=== PATIENT | female | born 1950 | race Caucasian/White ===

== ENCOUNTER 2016-08-21 14:25 | Observation (INO) | payer MEDICAID ==
[~2016-08-21] VITALS: Ht 165.1 cm; Wt 45.0 kg
[~2016-08-21 14:25] MED LIST: CELE20TA PO; HYDR-3580 PO; MELO15TA2 PO; TRAZ100 PO; ZOFR4TAB3 SL
[2016-08-21 14:27] VITALS: BP 111/61; PULSE 106; RESP 20; TEMP 99.1; O2SAT 97
[2016-08-21] MEDS ORDERED: CELE20TA PO (15:21)
[2016-08-21] MEDS ORDERED: TRAZ50TA12 PO (15:21)
[2016-08-21] MEDS ORDERED: HYDR-3535 PO (15:21)
[2016-08-21] MEDS ORDERED: GABA300C5 PO (15:21)
[2016-08-21] MEDS ORDERED: LORA-474 PO (15:21)
[2016-08-21] MEDS ORDERED: SODIUM CHLORIDE 0.9% FLUSH 10 ML FLUSH IVF PRN (16:00)
[2016-08-21] MEDS ORDERED: ASPIRIN 325 MG TAB PO ONE (16:00)
[2016-08-21] MEDS ORDERED: oxyCODONE/ACETAMINOPHEN 5 MG/325 MG TAB PO ONE (16:00)
[2016-08-21] MEDS ORDERED: LORazepam 1 MG TAB PO ONE (16:00)
--- NOTE | 2016-08-21 16:01 | PD ---
HPI Chief Complaint: Pain: Acute or Chronic Time Seen by Provider: 15:40 Travel History International Travel<30 days: No Contact w/Intl Traveler<30days: No Traveled to known affect area: No History of Present Illness HPI The patient was seen and examined in the presence of the nurse. She complains of chest pain. Duration 5 days. She describes it as a upper and central sternal heaviness. It radiates toward her left shoulder. Severity is moderate. No alleviating factors. Patient was hospitalized at [facility] for the weekend for this problem but she signed out AGAINST MEDICAL ADVICE. She did not get any stress testing. She comes in today for evaluation of the same chest pain. PFSH Past Medical History ADHD: Yes Arthritis: Yes Anxiety: Yes Depression: Yes Cardiovascular Problems: Yes Chest Pain: Yes Diminished Hearing: No GERD: Yes Headaches: Yes Musculoskeletal: Yes (HX OF DJD, SCOLIOSIS, sciatica, chronic back pain ) Psychiatric: Yes Respiratory: Yes Immunizations Current: No Migraines: Yes Seizures: Yes Menopausal: Yes : 1 Para: 0 Miscarriage: 1 : 0 Past Surgical History Joint Replacement: Yes (left shoulder surgery) Oral Surgery: Yes (TEETH REMOVED 2006) Family History Family Hypercholesterolemia: Yes Social History Alcohol Use: No Tobacco Use: Yes (1 cig per day) Substance Use: No Allergies-Medications (Allergen,Severity, Reaction): Coded Allergies: Penicillin (Verified Allergy, Severe, SKIN TURNS RED, 08/21/16) Toradol (Verified Allergy, Severe, Rash, 08/21/16) THE PATIENT CAN TAKE OTHER NSAIDS (ADVIL) WITHOUT REACTIONS Phenergan (Verified Allergy, Mild, VOMITING, 08/21/16) Reported Meds & Prescriptions Reported Meds & Active Scripts Active Reported Ativan (Lorazepam) 1 Mg Tab 1 Mg PO TID PRN Trazodone (Trazodone HCl) 50 Mg Tab 75 Mg PO HS Gabapentin 300 Mg Cap 300 Mg PO BID Lortab (Hydrocodone-Acetaminophen) 10-325 Mg Tab 1 Tab PO Q6H PRN Celexa (Citalopram Hydrobromide) 20 Mg Tab 20 Mg PO DAILY Review of Systems General / Constitutional: No: Fever Eyes: No: Visual changes HENT: No: Headaches Cardiovascular: Positive: Chest Pain or Discomfort Respiratory: No: Shortness of Breath Gastrointestinal: No: Abdominal Pain Genitourinary: No: Dysuria Musculoskeletal: Positive: Pain Skin: No Rash Neurologic: No: Weakness Psychiatric: Positive: Anxiety, No: Depression Endocrine: No: Polydipsia Hematologic/Lymphatic: No: Easy Bruising Physical Exam Narrative GENERAL: Thin cachectic patient in no apparent distress. SKIN: Warm and dry. HEAD: Atraumatic. Normocephalic. EYES: Pupils equal and round. No scleral icterus. No injection or drainage. ENT: No nasal bleeding or discharge. Mucous membranes pink and moist. NECK: Trachea midline. No JVD. CARDIOVASCULAR: Regular rate and rhythm. No murmur appreciated. RESPIRATORY: No accessory muscle use. Clear to auscultation. Breath sounds equal bilaterally. GASTROINTESTINAL: Abdomen soft, non-tender, nondistended. Hepatic and splenic margins not palpable. MUSCULOSKELETAL: No obvious deformities. No clubbing. No cyanosis. No edema. NEUROLOGICAL: Awake and alert. No obvious cranial nerve deficits. Motor grossly within normal limits. Normal speech. PSYCHIATRIC: Anxious mood and affect; insight and judgment questionable. Data Data Last Documented VS Vital Signs Date Time Temp Pulse Resp B/P Pulse Ox O2 Delivery O2 Flow Rate FiO2 08/21/16 18:02 72 20 99/58 99 Room Air 08/21/16 14:27 99.1 Orders Electrocardiogram (08/21/16 ) Basic Metabolic Panel (Bmp) (08/21/16 15:48) Ckmb (Isoenzyme) Profile (08/21/16 15:48) Complete Blood Count With Diff (08/21/16 15:48) Prothrombin Time / Inr (Pt) (08/21/16 15:48) Act Partial Throm Time (Ptt) (08/21/16 15:48) Troponin I (08/21/16 15:48) Chest, Single Ap (08/21/16 15:48) Ecg Monitoring (08/21/16 15:48) Iv Access Insert/Monitor (08/21/16 15:48) Oximetry (08/21/16 15:48) Aspirin (Aspirin) (08/21/16 16:00) Sodium Chloride 0.9% Flush (Ns Flush) (08/21/16 16:00) Oxycodone-Acetamin 5-325 Mg (Percocet (08/21/16 16:00) Lorazepam (Ativan) (08/21/16 16:00) Admit Order (Ed Use Only) (08/21/16 18:45) Labs Laboratory Tests Test 08/21/16 16:00 White Blood Count 6.2 TH/MM3 Red Blood Count 4.25 MIL/MM3 Hemoglobin 13.4 GM/DL Hematocrit 38.5 % Mean Corpuscular Volume 90.6 FL Mean Corpuscular Hemoglobin 31.6 PG Mean Corpuscular Hemoglobin 34.8 % Concent Red Cell Distribution Width 12.5 % Platelet Count 171 TH/MM3 Mean Platelet Volume 9.1 FL Neutrophils (%) (Auto) 75.6 % Lymphocytes (%) (Auto) 18.4 % Monocytes (%) (Auto) 4.5 % Eosinophils (%) (Auto) 0.7 % Basophils (%) (Auto) 0.8 % Neutrophils # (Auto) 4.7 TH/MM3 Lymphocytes # (Auto) 1.1 TH/MM3 Monocytes # (Auto) 0.3 TH/MM3 Eosinophils # (Auto) 0.0 TH/MM3 Basophils # (Auto) 0.0 TH/MM3 CBC Comment DIFF FINAL Differential Comment Prothrombin Time 11.4 SEC Prothromb Time International 1.0 RATIO Ratio Activated Partial 22.7 SEC Thromboplast Time Sodium Level 141 MEQ/L Potassium Level 3.8 MEQ/L Chloride Level 107 MEQ/L Carbon Dioxide Level 27.6 MEQ/L Anion Gap 6 MEQ/L Blood Urea Nitrogen 10 MG/DL Creatinine 0.70 MG/DL Estimat Glomerular Filtration 84 ML/MIN Rate Random Glucose 87 MG/DL Calcium Level 8.7 MG/DL Total Creatine Kinase 36 U/L Troponin I LESS THAN 0.02 NG/ML MDM Medical Decision Making Medical Screen Exam Complete: Yes Emergency Medical Condition: Yes Medical Record Reviewed: Yes Differential Diagnosis Differential diagnosis includes SC, angina, pericarditis, pleurisy, GERD, anxiety. Narrative Course I have reviewed the patient's electronic medical record. She was seen here in 2013 for chest pain and hospitalized and had a normal stress test IV placed I reviewed the EKG which shows sinus rhythm but no ST elevation I reviewed the chest x-ray is negative Extended cardiac monitoring shows sinus rhythm without ectopy CBC is normal Metabolic profile is normal CK is normal Troponin is normal are normal Coagulation studies I gave her an aspirin and 1 pain pill and 1 anxiety pill Workup here is entirely negative. He will be a 23 hour observation in the chest pain center in order to rule out cardiac cause of her chest heaviness Diagnosis Primary Impression: Chest pain in adult Admitting Information Admitting Physician Requests: Observation Zheng Garzon MD Aug 21, 2016 16:01
[2016-08-21 16:30] LABS: AUTOMATED NEUTROPHIL # 4.7 TH/MM3 (1.8-7.7); BASOPHIL % 0.8 % (0.0-2.0); EOSINOPHIL % 0.7 % (0.0-4.0); HEMATOCRIT 38.5 % (35.0-46.0); HEMO FLAGS DIFF FINAL; LYMPH % 18.4 % (9.0-44.0); LYMPHOCYTE # 1.1 TH/MM3 (1.0-4.8); MEAN CELL VOLUME 90.6 FL (80.0-100.0); MEAN CORPUSCULAR HEMOGLOBIN 31.6 PG (27.0-34.0); MEAN CORPUSCULAR HGB CONC 34.8 % (32.0-36.0); MONO % 4.5 % (0.0-8.0); NEUT % 75.6 % (16.0-70.0); PLATELET COUNT 171 TH/MM3 (150-450); RED BLOOD COUNT 4.25 MIL/MM3 (4.00-5.30); RED CELL DISTRIBUTION WIDTH 12.5 % (11.6-17.2); WHITE BLOOD COUNT 6.2 TH/MM3 (4.0-11.0)
[2016-08-21 16:34] LABS: APTT (PATIENT) 22.7 SEC (24.3-30.1); PROTHROMBIN TIME - PATIENT 11.4 SEC (9.8-11.6)
[2016-08-21 16:45] LABS: ANION GAP 6 MEQ/L (5-15); BICARBONATE 27.6 MEQ/L (21.0-32.0); BLOOD UREA NITROGEN 10 MG/DL (7-18); CHLORIDE 107 MEQ/L (98-107); GLOMERULAR FILTRATION RATE 84 ML/MIN (>89); POTASSIUM 3.8 MEQ/L (3.5-5.1); SODIUM (NA) 141 MEQ/L (136-145)
[2016-08-21 16:46] LABS: CREATINE KINASE 36 U/L (26-192)
[2016-08-21 16:54] VITALS: O2SAT 97
--- NOTE | 2016-08-21 16:55 | RADRPT ---
EXAM DATE/TIME: 08/21/2016 16:13 [facility] COMPARISON: CHEST SINGLE AP, August 25, 2012, 12:46. INDICATIONS : Chest pain. MEDICAL HISTORY : pt states that she has a blockage but wouldn't have a catherization. SURGICAL HISTORY : None. ENCOUNTER: Initial ACUITY: 1 day PAIN SCORE: 10/10 LOCATION: Left chest left arm and shoulder FINDINGS: A single view of the chest demonstrates the lungs to be hyperinflated but clear of acute infiltrate. Minimal atelectasis or scarring above the left hemidiaphragm. No effusions. Heart size is normal. Med ullary scott and osseous screws secure the proximal left humerus. Osseous structures are otherwise inta ct. CONCLUSION: 1. Hyperinflation with minimal atelectasis or scarring above the left hemidiaphragm. 2. No acute infiltrate. Cristobal Arriaga MD on August 21, 2016 at 16:52 Board Certified Radiologist. This report was verified electronically.
[2016-08-21 18:02] VITALS: BP 99/58; PULSE 72; RESP 20; O2SAT 99
[2016-08-21] MEDS ORDERED: ALPRAZolam 0.25 MG TAB PO PRN (19:00)
[2016-08-21] MEDS ORDERED: ONDANSETRON HCL 4 MG/2 ML VIAL IV PRN (19:00)
[2016-08-21] MEDS ORDERED: SODIUM CHLORIDE 0.9% FLUSH 10 ML FLUSH IV FLUSH PRN (19:00)
[2016-08-21] MEDS ORDERED: ACETAMINOPHEN/HYDROcodone 325 MG/7.5 MG TAB PO PRN (19:00)
[2016-08-21 20:10] LABS: CREATINE KINASE 32 U/L (26-192)
[2016-08-21] MEDS: SODIUM CHLORIDE 0.9% FLUSH 10 ML FLUSH IV FLUSH SCH (21:00)
[2016-08-21] MEDS ORDERED: LORazepam 1 MG TAB PO PRN (23:00)
[2016-08-21 23:02] LABS: CREATINE KINASE 22 U/L (26-192)
[2016-08-22] MEDS: ACETAMINOPHEN/HYDROcodone 325 MG/10 MG TAB PO PRN ×2 (00:58→08:16)
[2016-08-22 02:17] VITALS: BP 124/78; PULSE 86; RESP 18; TEMP 97.8; O2SAT 97
[2016-08-22 08:06] VITALS: BP 114/70; PULSE 64; RESP 16; TEMP 97.9; O2SAT 98
--- NOTE | 2016-08-22 08:08 | HHI.HP ---
HPI Primary Care Physician Wilfrid Hdez DO Chief Complaint Chest pain History of Present Illness This is a 66-year-old female with history of chronic back pain and anxiety that presents to ED complaining of 6 days of constant discomfort in her left chest, left shoulder, left side her neck with the discomfort radiating down her left arm. Certain movements seem to exacerbate her symptoms. He states she has been doing some packing at home as she is about to move. But denies any particular trauma. She times been short of breath nauseous and diaphoretic with her symptoms. She went to a different facility on the first of her symptoms was kept overnight and she states that she was scared when they told her they wanted to do a heart catheterization and then she left AMA. Denies recent illnesses. Denies fevers or chills. Last stress test at this facility was in 2012 and was nonischemic. Review of Systems General: Patient denies fevers, chills recent, and recent travel HEENT: Patient denies headache, sore throat, difficulty swallowing. Cardiovascular: Has the chest discomfort as mentioned above. Denies sensation of heart beating rapidly or irregularly. No syncope. At times some diaphoresis. Respiratory: She times been short of breath but thinks it may been related to anxiety. Denies inspirational chest discomfort. Denies coughing wheezing or hemoptysis. GI: At times nausea. Patient denies vomiting, diarrhea, abdominal pain, bloody stools. Musculoskeletal: Complains of chronic back pain. Patient denies joint pain or edema. Denies calf pain or edema. Neurovascular: Patient denies numbness, tingling, weakness in extremities. Denies headache. Endocrine: Denies polyuria and polydipsia. Hematologic: Denies easy bruising. Skin: Denies rash or itching. Past Family Social History Allergies: Coded Allergies: Penicillin (Verified Allergy, Severe, SKIN TURNS RED, 08/21/16) Toradol (Verified Allergy, Severe, Rash, 08/21/16) THE PATIENT CAN TAKE OTHER NSAIDS (ADVIL) WITHOUT REACTIONS Phenergan (Verified Allergy, Mild, VOMITING, 08/21/16) Past Medical History Chronic back pain, anxiety, and tobacco abuse. Denies known CAD, hypertension, diabetes, and hyperlipidemia. Past Surgical History Rods and her left arm. She has pins in her right elbow. Reported Medications Reported Meds & Active Scripts Active Reported Ativan (Lorazepam) 1 Mg Tab 1 Mg PO TID PRN Trazodone (Trazodone HCl) 50 Mg Tab 75 Mg PO HS Gabapentin 300 Mg Cap 300 Mg PO BID Lortab (Hydrocodone-Acetaminophen) 10-325 Mg Tab 1 Tab PO Q6H PRN Celexa (Citalopram Hydrobromide) 20 Mg Tab 20 Mg PO DAILY Active Ordered Medications Current Medications Medications (Trade) Dose Ordered Sig/Geovanna Route Start Time Stop Time Status Last Admin (NS Flush) 2 ml UNSCH PRN IV FLUSH 08/21/16 19:00 (NS Flush) 2 ml BID IV FLUSH 08/21/16 21:00 08/21/16 21:00 (Poca 7.5-325 Mg) 1 tab Q4H PRN PO 08/21/16 19:00 08/21/16 19:43 (Zofran Inj) 4 mg Q6H PRN IV 08/21/16 19:00 08/21/16 19:43 (Aspirin) 325 mg DAILY PO 08/22/16 09:00 (Xanax) 0.25 mg Q8H PRN PO 08/21/16 19:00 08/21/16 19:43 (CeleXA) 20 mg DAILY PO 08/22/16 09:00 (Neurontin) 300 mg BID PO 08/22/16 09:00 (Poca 10-325 Mg) 1 tab Q6H PRN PO 08/21/16 23:00 08/22/16 00:58 (Ativan) 1 mg TID PRN PO 08/21/16 23:00 (Desyrel) 50 mg HS PO 08/22/16 21:00 Family History Denies family history of CAD. Social History Patient has smoked 2-3 cigarettes a day for the last 15 years. She denies alcohol or illicit drugs. She lives with a roommate. Physical Exam Vital Signs Vital Signs Date Time Temp Pulse Resp B/P Pulse Ox O2 Delivery O2 Flow Rate FiO2 08/22/16 02:25 18 08/22/16 02:17 97.8 86 18 124/78 97 08/22/16 01:00 18 08/21/16 18:02 72 20 99/58 99 Room Air 08/21/16 16:54 97 08/21/16 14:27 99.1 106 20 111/61 97 Room Air Physical Exam GENERAL: This is a well-nourished, well-developed patient, in no apparent distress. Patient speaks in clear complete sentences. Patient is pleasant. HEENT: Head is atraumatic and normocephalic. Neck is supple without lymphadenopathy and trachea is midline. No JVD or carotid bruits. CARDIOVASCULAR: Regular rate and rhythm without murmurs, gallops, or rubs. RESPIRATORY: Clear to auscultation. Breath sounds equal bilaterally. No wheezes , rales, or rhonchi. The discomfort is worsened with twisting of the torso. No use of accessory muscles. GASTROINTESTINAL: Abdomen is nontender, nondistended. Abdomen soft. No obvious pulsatile mass or bruit. No CVA tenderness. Strong femoral pulses bilaterally. Normal bowel sounds in all quadrants. MUSCULOSKELETAL: Chronic back pain is present on examination with range of motion of her back. Patient is moving upper and lower extremities freely. No calf tenderness or edema, no Homans sign. Strong pulses in upper and lower extremities. Strong radiocommunications technician strength bilaterally. NEUROLOGICAL: Patient is alert and oriented. Cranial nerves 2-12 are grossly intact. No focal deficits and speech is clear. SKIN: No rash and turgor is normal. Laboratory Laboratory Tests Test 08/21/16 08/21/16 08/21/16 16:00 19:25 22:15 White Blood Count 6.2 Red Blood Count 4.25 Hemoglobin 13.4 Hematocrit 38.5 Mean Corpuscular Volume 90.6 Mean Corpuscular Hemoglobin 31.6 Mean Corpuscular Hemoglobin 34.8 Concent Red Cell Distribution Width 12.5 Platelet Count 171 Mean Platelet Volume 9.1 Neutrophils (%) (Auto) 75.6 Lymphocytes (%) (Auto) 18.4 Monocytes (%) (Auto) 4.5 Eosinophils (%) (Auto) 0.7 Basophils (%) (Auto) 0.8 Neutrophils # (Auto) 4.7 Lymphocytes # (Auto) 1.1 Monocytes # (Auto) 0.3 Eosinophils # (Auto) 0.0 Basophils # (Auto) 0.0 CBC Comment DIFF FINAL Differential Comment Prothrombin Time 11.4 Prothromb Time International 1.0 Ratio Activated Partial 22.7 Thromboplast Time Sodium Level 141 Potassium Level 3.8 Chloride Level 107 Carbon Dioxide Level 27.6 Anion Gap 6 Blood Urea Nitrogen 10 Creatinine 0.70 Estimat Glomerular Filtration 84 Rate Random Glucose 87 Calcium Level 8.7 Total Creatine Kinase 36 32 22 Troponin I LESS THAN 0.02 LESS THAN 0.02 LESS THAN 0.02 Result Diagram: 08/21/16 1600 08/21/16 1600 Imaging Last 24 hours Impressions Chest X-Ray 08/21/16 1548 Signed Impressions: Service Date/Time: Sunday, August 21, 2016 16:13 - CONCLUSION: 1. Hyperinflation with minimal atelectasis or scarring above the left hemidiaphragm. 2. No acute infiltrate. Cristobal Arriaga MD Course EKGs have sinus rhythm without significant ST segment depressions or elevations. Assessment and Plan Assessment and Plan * Chest pain: Patient's discomfort is atypical and has been constant for about 6 days. She had serial cardiac enzymes and EKGs for ruling out purposes. She will be evaluated by Dr. Presley Erickson of cardiology in the chest pain center. We likely will be doing a chemical stress test but as of right now the patient is still thinking about it she will do this or not. * Chronic back pain: Continue current medication. * Anxiety: Continue current medication. * Tobacco abuse: Patient has been counseled on importance of smoking cessation. Patient is stable at this time. Handy Tererll Aug 22, 2016 08:08
[2016-08-22] MEDS: SODIUM CHLORIDE 0.9% FLUSH 10 ML FLUSH IV FLUSH SCH (09:00)
[2016-08-22] MEDS ORDERED: ASPIRIN 325 MG TAB PO SCH (09:00)
[2016-08-22] MEDS ORDERED: CITALOPRAM HYDROBROMIDE 20 MG TAB PO SCH (09:00)
[2016-08-22] MEDS ORDERED: GABAPENTIN 300 MG CAP PO SCH (09:00)
--- NOTE | 2016-08-22 09:07 | HHI.DCPOC ---
Discharge Care Plan Diagnosis: (1) Chest pain, atypical (2) Chronic back pain (3) Tobacco abuse (4) Anxiety Goals to Promote Your Health * To prevent worsening of your condition and complications * To maintain your health at the optimal level Directions to Meet Your Goals Take your medications as prescribed Follow your dietary instruction Follow activity as directed Keep your appointments as scheduled Take your immunizations and boosters as scheduled If your symptoms worsen call your PCP, if no PCP go to Urgent Care Center or Emergency Room Smoking is Dangerous to Your Health. Avoid second hand smoke Call the 24-hour hour crisis hotline for domestic abuse at [facility] Aug 22, 2016 09:07
[2016-08-22] MEDS ORDERED: traZODone HCL 50 MG TAB PO SCH (21:00)
--- NOTE | 2016-08-23 14:32 | EKG ---
Date Performed: 08/21/2016 Time Performed: 22:15:41 PTAGE: 66 years EKG: Sinus rhythm NORMAL ECG PREVIOUS TRACING : 08/21/2016 19.23 Since previous tracing, no significant change noted DOCTOR: Jono Briceno Interpretating Date/Time 08/23/2016 14:31:25
--- NOTE | 2016-08-23 14:34 | EKG ---
Date Performed: 08/21/2016 Time Performed: 19:23:39 PTAGE: 66 years EKG: Sinus rhythm NORMAL ECG PREVIOUS TRACING : 08/21/2016 14.44 Since previous tracing, no significant change noted DOCTOR: Jono Briceno Interpretating Date/Time 08/23/2016 14:33:21
--- NOTE | 2016-08-23 14:35 | EKG ---
Date Performed: 08/21/2016 Time Performed: 14:44:08 PTAGE: 66 years EKG: Sinus rhythm NONSPECIFIC T-WAVE ABNORMALITY BORDERLINE ECG PREVIOUS TRACING : 01/21/2013 21.06 Since previous tracing, no significant change noted DOCTOR: Jono Briceno Interpretating Date/Time 08/23/2016 14:34:31
== END 2016-08-22 10:46 | disposition home or self-care (01) ==
LOC: NEPC 14:25 → NEDA 18:46 → NEPHCDU 21:30
PROVIDERS: ADMIT Internal Medicine Interventional Cardiology; ATTEND Internal Medicine Interventional Cardiology
DX: R07.89 Other chest pain (principal); M54.9 Dorsalgia, unspecified; F41.9 Anxiety disorder, unspecified; K21.9 Gastro-esophageal reflux disease without esophagitis; M19.90 Unspecified osteoarthritis, unspecified site; F32.9 Major depressive disorder, single episode, unspecified; R06.02 Shortness of breath; R61 Generalized hyperhidrosis; Z72.0 Tobacco use
CPT/HCPCS: 71010; 80048; 82550; 84484; 85025; 85610; 85730; 93005; 99285; G0378; J2405